=== PATIENT | female | born 1940 | race Caucasian/White ===

== ENCOUNTER 2025-03-20 06:34 | Emergency (ER) | payer MEDICARE, OTHER ==
[~2025-03-20] VITALS: Ht 165.1 cm; Wt 72.0 kg
[~2025-03-20 06:34] MED LIST: ALBUAER3 IN; DICL75TA3 PO; FLUT110A INH; HYDR12.59 PO; LANS30CA57 PO; LISI20TA56 PO; NIFE1TAB30 PO; PROM2SUP PR; SERDISK IN; SIMV20TA20 PO
--- NOTE | 2025-03-20 07:03 | ED.PDOC ---
GI ASSESSMENT HPI Comments A 84 YEAR OLD FEMALE PRESENTS TO THE ED WITH COMPLAINT OF DIARRHEA. PT STATES SHE HAS BEEN HAVING DIARRHEA WITH ASSOCITED NAUSEA FOR THE PAST 4X DAYS. PT STATES SHE ALSO HAS BEEN HAVING INTERMITTENT FEVERS AND ASSOCIATED CRAMPING ABDOMINAL PAIN. PT THINKS IT IS POSSIBLY RELATED TO SOME BAD FOOD SHE ATE 4X DAYS PRIOR. PATIENT DENIES CHILLS, SHORTNESS OF BREATH, CHEST PAIN, VOMITING, HEADACHE, OR OTHER COMPLAINTS. NO OTHER SYMPTOMS OR MODIFYING FACTORS AT THIS TIME. PATIENT IS ALERT, ORIENTED X 4, AND HAS STEADY GAIT. Chief Complaint: Diarrhea Time Seen by MD: 06:59 Primary Care Provider: JUSTINE Reviewed Notes: Medications, Allergies Allergies: Coded Allergies: NO KNOWN ALLERGIES (Unverified , 05/24/13) Home Meds Active Scripts Loperamide HCl (Imodium A-D) 2 Mg Cap, 2 MG PO TID, #30 CAP Prov:VALORIE DUMONT 03/20/25 Ciprofloxacin Hcl (Cipro) 500 Mg Tab, 1 TAB PO BID, #14 TAB Prov:VALORIE DUMONT 03/20/25 Reported Medications Promethazine HCl (Phenergan) 12.5 Mg Sup, LA 09/07/16 Albuterol Sulfate (VENTOLIN MDI) 90 Mcg Ih, 90 MCG IN 09/07/16 Salmeterol Xinafoate (Serevent Diskus) 50 Mcg Aer, 50 MCG IN QID, AER 09/07/16 Fluticasone Propionate (FLOVENT HFA 110Mcg INH) 110 Mcg Ih, 2 PUFF INH BID, #1 INHALER 2 Refills 09/07/16 Simvastatin (Simvastatin) 20 Mg Tab, 1 TAB PO QPM, #30 TAB 5 Refills 09/07/16 Nifedipine (Nifedipine Er) 60 Mg Tab, 1 TAB PO DAILY, #30 TAB 5 Refills 09/07/16 Lisinopril (Lisinopril) 20 Mg Tab, 1 TAB PO BID, #30 TAB 5 Refills 09/07/16 Hydrochlorothiazide (Hydrochlorothiazide) 12.5 Mg Cap, 10 MG PO PRN, #30 CAP 5 Refills 09/07/16 Diclofenac Sodium (Diclofenac Sodium Dr) 75 Mg Tab, 0.5 TAB PO DAILY, #60 TAB 1 Refill 09/07/16 Lansoprazole (Lansoprazole) 30 Mg Cap, 1 CAP PO DAILY, #30 CAP 5 Refills 09/07/16 Information Source: Patient Mode of Arrival: Ambulatory Brought in by: SELF Duration: Since onset, Days Prehospital treatment: None Quality: Aching, Cramping, Colicky Stool: Loose, Watery Severity: Mild, Moderate Recent: None Recent Hx of: None Pain Location: Other (MIDDLE ABD ) Modifying Factors: Nothing Associated sign and symptoms: Nausea, Diarrhea, Abdominal Pain Past Medical History PAST MEDICAL HISTORY: Asthma, High Lipids, HTN, TIA Surgical History: Appendectomy RECEIVING CLERK History: No Pertinent RECEIVING CLERK History Family History Family History: Unobtainable Social History Smoker: Secondhand Alcohol: Occasionally Drugs: Denies Drug Use Lives In: Home Constitutional: denies: chills, diaphoresis, fatigue, fever, malaise, sweats, weakness, others EENTM: denies: blurred vision, double vision, ear bleeding, ear discharge, ear drainage, ear pain, ear ringing, eye pain, eye redness, hearing loss, mouth pain, mouth swelling, nasal discharge, nose bleeding, nose congestion, nose pain, photophobia, tearing, throat pain, throat swelling, voice changes, others Respiratory: denies: cough, hemoptysis, orthopnea, SOB at rest, shortness of breath, SOB with excertion, stridor, wheezing, others Cardiovascular: denies: chest pain, dizzy spells, diaphoresis, Dyspnea on exertion, edema, irregular heart beat, left arm pain, lightheadedness, palpitations, PND, syncope, others Gastrointestinal: reports: abdominal pain, diarrhea, nausea; denies: abdomen distended, blood streaked bowels, constipated, dysphagia, difficulty swallowing, hematemesis, melena, poor appetite, poor fluid intake, rectal bleeding, rectal pain, vomiting, others Genitourinary: denies: abnormal vagina bleeding, burning, dyspareunia, dysuria, flank pain, frequency, hematuria, incontinence, pain, , vagina discharge, urgency, others Neurological: denies: dizziness, fainting, headache, left sided numbness, left sided weakness, numbness, paresthesia, pre-existing deficit, right sided numbness, right sided weakness, seizure, speech problems, tingling, tremors, weakness, others Musculoskeletal: denies: back pain, gout, joint pain, joint swelling, muscle pain, muscle stiffness, neck pain, others Integumetry: denies: bruises, change in color, change in hair/nails, dryness, laceration, lesions, lumps, rash, wounds, others Allergic/Immunocompromised: denies: Difficulty Healing, Frequent Infections, Hives, Itching, others Hematologic/Lymphatic: denies: anemia, blood clots, easy bleeding, easy bruising, swollen glands, others Endocrine: denies: excessive hunger, excessive sweating, excessive thirst, excessive urination, flushing, intolerance to cold, intolerance to heat, unexplained weight gain, unexplained weight loss, others Psychiatric: denies: anxiety, bipolar disorder, depression, hopeless, panic disorder, schizophrenia, sleepless, suicidal, others All Other Systems: Reviewed and Negative Physical Exam General Appearance: No Apparent Distress, Normal HEENT: Normal ENT Inspection, PERRL/EOMI, Pharynx Normal, TMs Normal Neck: Full Range of Motion, Non-Tender, Normal, Normal Inspection Respiratory: Chest Non-Tender, Lungs Clear, No Accessory Muscle Use, No Respiratory Distress, Normal Breath Sounds Cardiovascular: No Edema, No JVD, No Murmur, No Gallop, Normal Peripheral Pulses, Regular Rate/Rhythm Breast Exam: Deferred Gastrointestinal: No Organomegaly, No Pulsatile Mass, Normal Bowel Sounds, Soft, Tenderness (MIDDLE ABD, NO GUARDING AND REBOUND TENDERNESS. ) Genitalia: Deferred Pelvic: Deferred Rectal: Deferred Extremities: No calf tenderness, Normal capillary refill, Normal inspection, Normal range of motion, Non-tender, No pedal edema Musculoskeletal : Apperance: Normal Neurologic: Alert, human resources operations coordinator II-XII nml as Tested, No Motor Deficits, Normal Affect, Normal Mood, No Sensory Deficits Cerebellar Function: Normal Reflexes: Normal Skin: Dry, Normal Color, Warm Peripheral Pulses: 2+ carotid (R), 2+ carotid (L) Lymphatic: No Adenopathy Was a procedure done? Was a procedure done?: No GI differential Dx Differential Diagnosis: Cholecystitis, Constipation, Gastritis/PUD, Gastroenteritis, Inflammatory BD, Pancreatitis, UTI, Dehydration, Electrolyte Imbalance, Food Poisoning, Bacterial, Viral, Stress Ulcer X-Ray, Labs, Meds, VS Vital Signs Date Time Temp Pulse Resp B/P (MAP) Pulse Ox O2 Delivery O2 Flow Rate FiO2 03/20/25 09:12 97.9 85 17 177/60 (99) 95 97.9 03/20/25 09:12 85 18 95 Room Air 03/20/25 06:38 98.1 90 20 160/72 97 98.1 Lab Test 03/20/25 07:02 Range/Units White Blood Count 8.6 4.4-10.8 10^3/uL Red Blood Count 4.64 4.0-5.20 10^6/uL Hemoglobin 14.0 12.2-16.2 g/dL Hematocrit 41.5 36.0-46.0 % Mean Corpuscular Volume 89.3 80.0-100.0 fL Mean Corpuscular Hemoglobin 30.1 28.0-32.0 pg Mean Corpuscular Hemoglobin Concent 33.7 32.0-36.0 g/dL Red Cell Distribution Width 14.7 H 11.8-14.3 % Platelet Count 280 140-450 10^3/uL Mean Platelet Volume 9.6 6.9-10.8 fL Neutrophils (%) (Auto) 78.0 37.0-80.0 % Lymphocytes (%) (Auto) 14.2 10.0-50.0 % Monocytes (%) (Auto) 5.2 0.0-12.0 % Eosinophils (%) (Auto) 1.3 0.0-7.0 % Basophils (%) (Auto) 1.3 0.0-2.0 % Neutrophils # (Auto) 6.7 1.6-8.6 10 ^3/uL Lymphocytes # (Auto) 1.2 0.4-5.4 10 ^3/uL Monocytes # (Auto) 0.4 0-1.3 10 ^3/uL Eosinophils # (Auto) 0.1 0-0.8 10 ^3/uL Basophils # (Auto) 0.1 0-0.2 10 ^3/uL Nucleated Red Blood Cells 0.0 % Sodium Level 146 H 136-145 mmol/L Potassium Level 3.7 3.5-5.1 mmol/L Chloride Level 105 98-107 mmol/L Carbon Dioxide Level 25 20-31 mmol/L Anion Gap 16 H 5-15 Blood Urea Nitrogen 11 9-23 mg/dL Creatinine 1.10 H 0.550-1.02 mg/dL Glomerular Filtration Rate Calc 50 >90 mL/min BUN/Creatinine Ratio 10.0 10.0-20.0 Serum Glucose 102 74-106 mg/dL Calcium Level 10.5 H 8.7-10.4 mg/dL Total Bilirubin 0.2 0.2-1.0 mg/dL Aspartate Amino Transferase (AST) 37 13-40 U/L Alanine Aminotransferase (ALT) 21 7-40 U/L Alkaline Phosphatase 93 46-116 U/L Total Protein 7.8 5.7-8.2 g/dL Albumin 4.7 3.2-4.8 g/dL Lipase 34 12-53 U/L Current Medications Medications (Trade) Dose Ordered Sig/Es Route Start Time Stop Time Status Last Admin Sodium Chloride 1,000 ml @ 1,000 mls/hr Q1H ONCE IV 03/20/25 07:30 03/20/25 08:29 DC 03/20/25 08:39 Famotidine (Pepcid Injection) 20 mg ONCE ONCE IV 03/20/25 07:30 03/20/25 07:31 DC 03/20/25 09:56 Ondansetron HCl (Zofran) 4 mg ONCE ONCE IV 03/20/25 07:45 03/20/25 07:46 DC 03/20/25 09:53 Ceftriaxone Sodium 50 ml @ 100 mls/hr ONCE ONCE IV 03/20/25 08:15 03/20/25 08:44 DC 03/20/25 09:53 [place] [id number] Ph: [phone] DIAGNOSTIC IMAGING Diagnostic Imaging Report : [id number] Signed PATIENT: JEFFERSON MCKNIGHT ACCT: [id number] UNIT: [id number] : 1940 LOC: ER ROOM / BED: / AGE / SEX: 84 / F ADM STATUS: REG ER SERVICE 0 ORDERING PHYSICIAN: VALORIE DUMONT PROCEDURE(s): ABPL - CT AB PEL WO CON-NO ORAL OR IV REASON: GENERAL ABD PAIN WITH NAUSEA AND DIARRHEA ORDER NUMBER(s): [id number], ACCESSION NUMBER(s): [id number] Exam: CT CT AB PEL WO CON-NO ORAL OR IV History: GENERAL ABD PAIN WITH NAUSEA AND DIARRHEA Comparison Study: None. Technique: Multidetector spiral CT of the abdomen and pelvis was performed from lung bases to pubic symphysis. Imaging was performed without intravenous contrast. Coronal and sagittal multiplanar reformats were obtained from the axial data set by the technologist. Radiation Dose : 1. Abdomen/Pelvis: CTDIvol 17.41 mGy, DLP 894.57 mGy*cm. Findings: Evaluation of vasculature and solid organs is limited due to lack of intravenous contrast use. Lung Bases: There is bilateral lower lobe atelectasis. Visualized portions of the heart and pericardium are unremarkable. Liver: The liver is normal in size. No focal lesions. Gallbladder and Biliary Tree: The gallbladder is unremarkable. No intrahepatic or extrahepatic biliary ductal dilatation. Spleen: Unremarkable Pancreas: The pancreas is grossly unremarkable. Adrenal Glands: Unremarkable Kidneys: Kidneys are unremarkable without calculi or hydronephrosis. GI tract: Hiatal hernia with a majority of the stomach intrathoracic in location. No evidence of small-bowel dilatation. There is contrast o pacification of the ascending colon an underdistended descending and sigmoid colon. Underdistention versus mucosal thickening is noted in the descending and sigmoid colon. No acute appendicitis. Peritoneum/mesentery/retroperitoneum. No evidence of free intraperitoneal air. No ascites. No evidence of suspicious lymphadenopathy. Abdominal Wall: Unremarkable. Vasculature: The visualized abdominal aorta is normal in size and caliber. Evaluation of abdominal and pelvic vessels is limited due to lack of intravenous contrast. Urinary Bladder: Grossly unremarkable for degree of distention. Pelvic Organs: The uterus is unremarkable. Musculoskeletal: No aggressive focal bony lesions, acute fractures or dislocation. S shaped thoracolumbar scoliosis. IMPRESSION: 1. No evidence of small bowel obstruction. 2. Underdistention versus mucosal thickening in the descending and sigmoid col on. Correlate for colitis. 3. Hiatal hernia with a majority of the stomach intrathoracic in location. ATED BY: MYA MERIDA MD DICTATED DATE/TIME: 03/20/25752 SIGNED BY: MYA MERIDA MD SIGNED DATE/TIME: 03/20/25752 CC: X-Ray, Labs, Meds, VS Comment COURSE: EXTERNAL MEDICAL RECORDS REVIEWED: [NONE] INDEPENDENT HISTORIANS: [NONE] SOCIAL DETERMINANTS OF HEALTH: [NONE] LABS ORDERED: CBC, CMP, UA, LIPASE, C DIFF REVIEWED AND INTERPRETED RESULTS: NONE IMAGING ORDERED: NONE TREATMENTS ORDERED: 0.9 NS 1L, ZOFRAN 4MG IVP, PEPCID 2MG IVP AND ROCEPHIN 1GM IVP PROCEDURES PERFORMED: NONE CRITICAL CARE TIME: NONE I HAVE DISCUSSED THE PATIENT WITH THE ATTENDING PHYSICIAN DR. GIVENS AND HE AGREES WITH THE PATIENT'S PLAN OF CARE AND DISPOSITION. PT HAD CT SCAN WHICH SHOWED COLITIS. PT WAS OFFERED ADMISSION BUT SHE DECLINED AND SIGNED AMA. BE GIVEN OUTPATIENT ANTIBIOTICS AND ANTIDIARRHEA MEDICATIONS. Time of 1ST Reevaluation: 10:21 Reevaluation 1ST: Improved Patient Education/Counseling: Diagnosis, Treatment Family Education/Counseling: Diagnosis, Treatment, No Family Present SEPSIS Sepsis Screen Date sepsis recognized/suspect: Mar 20, 2025 Time Sepsis recognized/suspect: 637 Recent Procedure: No On Antibiotic Therapy: No Respiratory Rate >20: No Heart Rate >90: No Temp<36 C (96.8 F) or >38.3 C: No SBP <90 or MAP <65 mmHG: No New Acute Mental Status Change: No Is the patient on CPAP, BIPAP,: No Physician Orders Urinalysis (03/20/25 06:52) Clostridium Difficile Toxin (03/20/25 06:52) Ct Ab Pel Wo Con-No Oral Or Iv (03/20/25 07:11) Heplock Iv (03/20/25 ) Vital Signs Date Time Temp Pulse Resp B/P (MAP) Pulse Ox O2 Delivery O2 Flow Rate FiO2 03/20/25 09:12 97.9 85 17 177/60 (99) 95 97.9 03/20/25 09:12 85 18 95 Room Air 03/20/25 06:38 98.1 90 20 160/72 97 98.1 Laboratory Tests Test 03/20/25 07:02 White Blood Count 8.6 10^3/uL (4.4-10.8) Medications Medications Dose Ordered Sig/Es Route Start Time Stop Time Status Last Admin Dose Admin Ceftriaxone Sodium 50 ml @ 100 mls/hr ONCE ONCE IV 03/20/25 08:15 03/20/25 08:44 DC 03/20/25 09:53 Famotidine 20 mg ONCE ONCE IV 03/20/25 07:30 03/20/25 07:31 DC 03/20/25 09:56 Ondansetron HCl 4 mg ONCE ONCE IV 03/20/25 07:45 03/20/25 07:46 DC 03/20/25 09:53 Sodium Chloride 1,000 ml @ 1,000 mls/hr Q1H ONCE IV 03/20/25 07:30 03/20/25 08:29 DC 03/20/25 08:39 Departure 1 Departure Time of Disposition: 10:21 Impression: Primary Impression: Colitis Additional Impression: Left against medical advice Disposition: LEFT AGAINST MEDICAL ADVICE Condition: Fair e-Prescriptions Loperamide HCl (Imodium A-D) 2 Mg Cap 2 MG PO TID, #30 CAP Prov: VALORIE DUMONT 03/20/25 Ciprofloxacin Hcl (Cipro) 500 Mg Tab 1 TAB PO BID, #14 TAB Prov: VALORIE DUMONT 03/20/25 Critical Care Note Critical Care Time?: No Stability Stability form required: No Heart Score Heart Score: Heart Score Response (Comments) Value History N/A 0 EKG N/A 0 Age N/A 0 Risk Factors N/A 0 Troponin N/A 0 Total 0 I personally scribed for VALORIE DUMONT ([email or web address]) on 03/20/25 at 07:03. Electronically submitted by Stephania Guardado ([employer]). I personally scribed for VALORIE DUMONT ([email or web address]) on 03/20/25 at 07:57. Electronically submitted by Stephania Guardado ([employer]). I personally scribed for VALORIE DUMONT ([email or web address]) on 03/20/25 at 10:00. Electronically submitted by Stephania Guardado ([email or web address] VALORIE DUMONT Mar 20, 2025 07:03
[2025-03-20 07:15] LABS: Hematocrit 41.5 % (36.0-46.0); Hemoglobin 14.0 g/dL (12.2-16.2); Mean Corpuscular Hemoglobin 30.1 pg (28.0-32.0); Mean Corpuscular Volume 89.3 fL (80.0-100.0); Nucleated Red Blood Cells % 0.0 %
[2025-03-20 07:31] LABS: Alanine Aminotransferase 21 U/L (7-40); Alkaline Phosphatase 93 U/L (46-116); Anion Gap 16 (5-15); BUN/Creatinine Ratio 10.0 (10.0-20.0); Blood Urea Nitrogen 11 mg/dL (9-23); Carbon Dioxide 25 mmol/L (20-31); Chloride 105 mmol/L (98-107); Glucose 102 mg/dL (74-106); Lipase 34 U/L (12-53); Potassium 3.7 mmol/L (3.5-5.1); Total Protein 7.8 g/dL (5.7-8.2)
[2025-03-20 07:32] LABS: Albumin 4.7 g/dL (3.2-4.8); Calcium 10.5 mg/dL (8.7-10.4); Sodium 146 mmol/L (136-145)
[2025-03-20 07:33] LABS: Bilirubin, Total 0.2 mg/dL (0.2-1.0)
--- NOTE | 2025-03-20 07:55 | DVH ---
Exam: CT CT AB PEL WO CON-NO ORAL OR IV History: GENERAL ABD PAIN WITH NAUSEA AND DIARRHEA Comparison Study: None. Technique: Multidetector spiral CT of the abdomen and pelvis was performed from lung bases to pubic symphysis. Imaging was performed without intravenous contrast. Coronal and sagittal multiplanar reformats were obtained from the axial data set by the technologist. Radiation Dose : 1. Abdomen/Pelvis: CTDIvol 17.41 mGy, DLP 894.57 mGy*cm. Findings: Evaluation of vasculature and solid organs is limited due to lack of intravenous contrast use. Lung Bases: There is bilateral lower lobe atelectasis. Visualized portions of the heart and pericardium are unremarkable. Liver: The liver is normal in size. No focal lesions. Gallbladder and Biliary Tree: The gallbladder is unremarkable. No intrahepatic or extrahepatic biliary ductal dilatation. Spleen: Unremarkable Pancreas: The pancreas is grossly unremarkable. Adrenal Glands: Unremarkable Kidneys: Kidneys are unremarkable without calculi or hydronephrosis. GI tract: Hiatal hernia with a majority of the stomach intrathoracic in location. No evidence of small-bowel dilatation. There is contrast opacification of the ascending colon an underdistended descending and sigmoid colon. Underdistention versus mucosal thickening is noted in the descending and sigmoid colon. No acute appendicitis. Peritoneum/mesentery/retroperitoneum. No evidence of free intraperitoneal air. No ascites. No evidence of suspicious lymphadenopathy. Abdominal Wall: Unremarkable. Vasculature: The visualized abdominal aorta is normal in size and caliber. Evaluation of abdominal and pelvic vessels is limited due to lack of intravenous contrast. Urinary Bladder: Grossly unremarkable for degree of distention. Pelvic Organs: The uterus is unremarkable. Musculoskeletal: No aggressive focal bony lesions, acute fractures or dislocation. S shaped thoracolumbar scoliosis. IMPRESSION: 1. No evidence of small bowel obstruction. 2. Underdistention versus mucosal thickening in the descending and sigmoid colon. Correlate for colitis. 3. Hiatal hernia with a majority of the stomach intrathoracic in location.
[2025-03-20] MEDS: SODIUM CHLORIDE 0.9% 1,000 ML IV ONE (08:39)
[2025-03-20 09:12] VITALS: BP 177/60; PULSE 85; RESP 18; TEMP 97.9; O2SAT 95
[2025-03-20] MEDS: ONDANSETRON HCL 4 MG/2 ML VIAL IV ONE (09:53)
[2025-03-20] MEDS: FAMOTIDINE (10MG/ML) 2ML VL IV ONE (09:56)
[2025-03-20] MEDS ORDERED: LOPE7.5C PO (10:16)
[2025-03-20] MEDS ORDERED: CIPR-173 PO (10:16)
== END 2025-03-20 10:23 | disposition left against medical advice (07) ==
LOC: ER 06:34
DX: K52.9 Noninfective gastroenteritis and colitis, unspecified (principal); F17.200 Nicotine dependence, unspecified, uncomplicated; I10 Essential (primary) hypertension; J45.909 Unspecified asthma, uncomplicated; Z86.73 Personal history of transient ischemic attack (TIA), and cerebral infarction without residual deficits; Z90.49 Acquired absence of other specified parts of digestive tract; Z79.51 Long term (current) use of inhaled steroids; Z79.899 Other long term (current) drug therapy
CPT/HCPCS: 36415; 74176; 80053; 83690; 85025; 96361; 96365; 96375; 99285; J0696; J2405; J3490; J7030

== ENCOUNTER 2025-03-22 06:04 | Inpatient (IN) | payer MEDICARE, OTHER ==
[~2025-03-22] VITALS: Ht 162.6 cm; Wt 66.4 kg
[~2025-03-22 06:04] MED LIST changes: +CIPR-173 PO; +LOPE7.5C PO
--- NOTE | 2025-03-22 06:34 | ED.PDOC ---
SOB-HPI HPI Comments 84 y.o female with PMHx of HTN, HLD, CVA, and asthma, presents with a chief complaint of SOB associated with a fever. Patient reports having an asthma flare up at the end of February 2025, states she then came to the hospital 2 days ago in which she developed fever and diarrhea. She was treated with IV fluids and medication which resolved the diarrhea, however, continues to experience SOB worse on exertion with an intermittent fever. Patient is afebrile upon ED arrival. BP was 187/66 during triage but does mentions taking 50mg Nifedipine prior to ED arrival. She denies any vomiting, nausea, chest pain, or leg swelling. She mentions occasional alcohol use but denies tobacco or substance use. Chief Complaint: Dizziness Time Seen by MD: 06:26 Primary Care Provider: JUSTINE Fernandez notes: Nurses Notes, Medications, Allergies Information Source: Patient Mode of Arrival: Ambulatory Severity: Moderate Timing: Days Duration: Since onset PE Risk Factors: None History of: Asthma Modifying Factors: Nothing; Exertion, Laying flat Associated Signs and Symptoms: Fever Past Medical History PAST MEDICAL HISTORY: Asthma, CVA, High Lipids, HTN, TIA Surgical History: Appendectomy, Tonsillectomy COMMUNITY SERVICES MANAGER History: Ectopic Family History Family History: Family hx of Cancer Social History Smoker: Secondhand Alcohol: Occasionally Drugs: Denies Drug Use Lives In: Home Constitutional: reports: fever; denies: chills, diaphoresis, fatigue, malaise, sweats, weakness, others EENTM: denies: blurred vision, double vision, ear bleeding, ear discharge, ear drainage, ear pain, ear ringing, eye pain, eye redness, hearing loss, mouth pain, mouth swelling, nasal discharge, nose bleeding, nose congestion, nose pain, photophobia, tearing, throat pain, throat swelling, voice changes, others Respiratory: reports: SOB at rest, shortness of breath, SOB with excertion; denies: cough, hemoptysis, orthopnea, stridor, wheezing, others Cardiovascular: reports: Dyspnea on exertion; denies: chest pain, dizzy spells, diaphoresis, edema, irregular heart beat, left arm pain, lightheadedness, palpitations, PND, syncope, others Gastrointestinal: denies: abdomen distended, abdominal pain, blood streaked bowels, constipated, diarrhea, dysphagia, difficulty swallowing, hematemesis, melena, nausea, poor appetite, poor fluid intake, rectal bleeding, rectal pain, vomiting, others Genitourinary: denies: abnormal vagina bleeding, burning, dyspareunia, dysuria, flank pain, frequency, hematuria, incontinence, pain, , vagina discharge, urgency, others Neurological: denies: dizziness, fainting, headache, left sided numbness, left sided weakness, numbness, paresthesia, pre-existing deficit, right sided numbness, right sided weakness, seizure, speech problems, tingling, tremors, weakness, others Musculoskeletal: denies: back pain, gout, joint pain, joint swelling, muscle pain, muscle stiffness, neck pain, others Integumetry: denies: bruises, change in color, change in hair/nails, dryness, laceration, lesions, lumps, rash, wounds, others Allergic/Immunocompromised: denies: Difficulty Healing, Frequent Infections, Hives, Itching, others Hematologic/Lymphatic: denies: anemia, blood clots, easy bleeding, easy bruising, swollen glands, others Endocrine: denies: excessive hunger, excessive sweating, excessive thirst, excessive urination, flushing, intolerance to cold, intolerance to heat, unexplained weight gain, unexplained weight loss, others Psychiatric: denies: anxiety, bipolar disorder, depression, hopeless, panic disorder, schizophrenia, sleepless, suicidal, others All Other Systems: Reviewed and Negative Physical Exam General Appearance: Moderate Distress HEENT: Normal ENT Inspection, Pharynx Normal, TMs Normal Neck: Full Range of Motion, Non-Tender, Normal, Normal Inspection Respiratory: Chest Non-Tender, Lungs Clear, No Accessory Muscle Use, No Respiratory Distress, Normal Breath Sounds Cardiovascular: No Edema, No JVD, No Murmur, No Gallop, Normal Peripheral Pulses, Regular Rate/Rhythm Breast Exam: Deferred Gastrointestinal: No Organomegaly, Non Tender, No Pulsatile Mass, Normal Bowel Sounds, Soft Genitalia: Deferred Pelvic: Deferred Rectal: Deferred Extremities: No calf tenderness, Normal capillary refill, Normal inspection, Normal range of motion, Non-tender, No pedal edema Musculoskeletal : Apperance: Normal Neurologic: Alert, aquatic facility manager II-XII nml as Tested, No Motor Deficits, Normal Affect, Normal Mood, No Sensory Deficits Cerebellar Function: Normal Reflexes: Normal Skin: Dry, Normal Color, Warm Lymphatic: No Adenopathy EKG EKG : Pulse Rate (adult): 88 [place]: Normal Cardiac Rhythm: NSR Block: None Hypertrophy: None ST: Normal Was a procedure done? Was a procedure done?: No Differential Dx Differential Diagnosis: Asthma, Bronchitis, Pneumonia, Respiratory Distress, URI X-Ray, Labs, Meds, VS Vital Signs Date Time Temp Pulse Resp B/P (MAP) Pulse Ox O2 Delivery O2 Flow Rate FiO2 03/22/25 09:27 97.7 92 18 185/84 (117) 95 97.7 03/22/25 06:51 88 03/22/25 06:48 88 03/22/25 06:12 98.0 97 16 187/66 96 98.0 Lab Test 03/22/25 09:40 03/22/25 08:01 03/22/25 07:53 03/22/25 07:48 Range/Units Troponin I High Sensitivity 11 10 </=34 ng/L SARS-CoV-2 Antigen (Rapid) Negative NEGATIVE Urine Color Colorless Yellow Urine Clarity Clear Clear Urine pH 6.5 5.0-9.0 Urine Specific [place] 1.007 1.001-1.035 Urine Protein Trace H Negative Urine Ketones Negative Negative Urine Blood 2+ H Negative /uL Urine Nitrite Negative Negative Urine Bilirubin Negative Negative Urine Urobilinogen Normal Negative mg/dL Urine Leukocyte Esterase 2+ Negative /uL Urine RBC 11 0 - 4 /hpf Urine Microscopic WBC 3 0-5 /HPF Urine Squamous Epithelial Cells Few <5 /hpf Urine Bacteria Few H None Seen /hpf Urine Glucose Normal Normal mg/dL Test 03/22/25 06:37 Range/Units White Blood Count 8.1 4.4-10.8 10^3/uL Red Blood Count 4.64 4.0-5.20 10^6/uL Hemoglobin 13.7 12.2-16.2 g/dL Hematocrit 44.1 36.0-46.0 % Mean Corpuscular Volume 95.0 # 80.0-100.0 fL Mean Corpuscular Hemoglobin 29.5 28.0-32.0 pg Mean Corpuscular Hemoglobin Concent 31.0 L 32.0-36.0 g/dL Red Cell Distribution Width 15.6 H 11.8-14.3 % Platelet Count 257 140-450 10^3/uL Mean Platelet Volume 9.8 6.9-10.8 fL Neutrophils (%) (Auto) 82.3 H 37.0-80.0 % Lymphocytes (%) (Auto) 10.0 10.0-50.0 % Monocytes (%) (Auto) 5.2 0.0-12.0 % Eosinophils (%) (Auto) 1.2 0.0-7.0 % Basophils (%) (Auto) 1.3 0.0-2.0 % Neutrophils # (Auto) 6.6 1.6-8.6 10 ^3/uL Lymphocytes # (Auto) 0.8 0.4-5.4 10 ^3/uL Monocytes # (Auto) 0.4 0-1.3 10 ^3/uL Eosinophils # (Auto) 0.1 0-0.8 10 ^3/uL Basophils # (Auto) 0.1 0-0.2 10 ^3/uL Nucleated Red Blood Cells 0.1 % D-Dimer, Quantitative 1.35 H 0.0-0.49 mg/L FEU Sodium Level 142 136-145 mmol/L Potassium Level 3.7 3.5-5.1 mmol/L Chloride Level 105 98-107 mmol/L Carbon Dioxide Level 24 20-31 mmol/L Anion Gap 13 5-15 Blood Urea Nitrogen 9 9-23 mg/dL Creatinine 1.15 H 0.550-1.02 mg/dL Glomerular Filtration Rate Calc 48 >90 mL/min BUN/Creatinine Ratio 7.8 L 10.0-20.0 Serum Glucose 106 74-106 mg/dL Calcium Level 10.8 H 8.7-10.4 mg/dL Troponin I High Sensitivity 9 </=34 ng/L B-Type Natriuretic Peptide 67.09 0-100 pg/mL Current Medications Medications (Trade) Dose Ordered Sig/Es Route Start Time Stop Time Status Last Admin Ceftriaxone Sodium 50 ml @ 100 mls/hr ONCE ONCE IV 03/22/25 09:45 03/22/25 10:14 DC 03/22/25 10:13 The patient was started on Rocephin 1 g IV piggyback The patient's urine test is positive for UTI The patient's CBC is within normal limits The D-dimer is 1.35 The chemistry panel shows an elevated creatinine at 1.15 The BNP is within normal limits The troponin is negative We did a CAT scan of the chest to rule out PE secondary to the elevated D-dimer The CAT scan of the chest shows: IMPRESSION: Examination is limited secondary to respiratory motion artifact. No large central or large segmental pulmonary embolism. Large hiatal hernia. Dependent subsegmental atelectasis. Images Reviewed?: Images reviewed and evaluated by me Time of 1ST Reevaluation: 06:30 Reevaluation 1ST: Unchanged Patient Education/Counseling: Diagnosis, Treatment, Prognosis Family Education/Counseling: No Family Present SEPSIS Sepsis Screen Date sepsis recognized/suspect: Mar 22, 2025 Time Sepsis recognized/suspect: 617 Recent Procedure: No On Antibiotic Therapy: No Respiratory Rate >20: No Heart Rate >90: Yes Temp<36 C (96.8 F) or >38.3 C: No SBP <90 or MAP <65 mmHG: No New Acute Mental Status Change: No Is the patient on CPAP, BIPAP,: No Physician Orders Heplock Iv (03/22/25 06:30) Pulse Oximetry (03/22/25 06:30) House Wrecker (03/22/25 06:30) Blood Pressure (03/22/25 06:30) Chest Two Views Routine (03/22/25 06:30) Electrocardigram (03/22/25 06:30) Electrocardigram (03/22/25 07:30) Electrocardigram (03/22/25 09:30) Ct Angio Chest Contrast (03/22/25 09:33) Vital Signs Date Time Temp Pulse Resp B/P (MAP) Pulse Ox O2 Delivery O2 Flow Rate FiO2 03/22/25 09:27 97.7 92 18 185/84 (117) 95 97.7 03/22/25 06:51 88 03/22/25 06:48 88 03/22/25 06:12 98.0 97 16 187/66 96 98.0 Laboratory Tests Test 03/22/25 06:37 White Blood Count 8.1 10^3/uL (4.4-10.8) Medications Medications Dose Ordered Sig/Es Route Start Time Stop Time Status Last Admin Dose Admin Ceftriaxone Sodium 50 ml @ 100 mls/hr ONCE ONCE IV 03/22/25 09:45 03/22/25 10:14 DC 03/22/25 10:13 Departure 1 Departure Time of Disposition: 10:54 Impression: Primary Impression: Elevated d-dimer Additional Impression: Acute respiratory distress Disposition: 09 ADMITTED INPATIENT Admit to: Tele Condition: Fair Critical Care Note Critical Care Time?: No Stability Stability form required: Yes Unstable for transfer: Telemetry monitoring (Telemetry monitoring required), ED Physician Assesment (Clinical assesment) Heart Score Heart Score: Heart Score Response (Comments) Value History N/A 0 EKG N/A 0 Age N/A 0 Risk Factors N/A 0 Troponin N/A 0 Total 0 I personally scribed for STACEY BRANNON MD ([email or web address]) on 03/22/25 at 06:34. Electronically submitted by Sheila Macias ([email or web address]). I personally scribed for STACEY BRANNON MD ([email or web address]) on 03/22/25 at 06:51. Electronically submitted by Sheila Macias ([email or web address]). STACEY BRANNON MD Mar 22, 2025 06:34
[2025-03-22 07:40] LABS: Chloride 105 mmol/L (98-107); Hematocrit 44.1 % (36.0-46.0); Hemoglobin 13.7 g/dL (12.2-16.2); Mean Corpuscular Hemoglobin 29.5 pg (28.0-32.0); Mean Corpuscular Volume 95.0 fL (80.0-100.0); Nucleated Red Blood Cells % 0.1 %; Potassium 3.7 mmol/L (3.5-5.1); Sodium 142 mmol/L (136-145)
[2025-03-22 07:41] LABS: Anion Gap 13 (5-15); Carbon Dioxide 24 mmol/L (20-31)
[2025-03-22 07:46] LABS: BUN/Creatinine Ratio 7.8 (10.0-20.0); Blood Urea Nitrogen 9 mg/dL (9-23)
[2025-03-22 07:47] LABS: Calcium 10.8 mg/dL (8.7-10.4); Glucose 106 mg/dL (74-106)
--- NOTE | 2025-03-22 08:00 | DVH ---
XY CHEST TWO VIEWS ROUTINE CLINICAL HISTORY: SOB COMPARISON: None TECHNIQUE: Frontal and lateral view of the chest was obtained FINDINGS: Lines and Tubes: None Lungs: No focal consolidation. Pleura: No effusion. No pneumothorax. Cardiomediastinal contours: Unremarkable Bones: No acute osseous abnormality. IMPRESSION: No acute cardiopulmonary disease.
[2025-03-22 08:19] LABS: Urine Protein, UAD TRACE (Negative)
[2025-03-22 08:30] LABS: COVID19 ANTIGEN SOFIA FIA NEGATIVE (NEGATIVE)
[2025-03-22] MEDS: IOHEXOL 350 MG/ML 100ML IJ ONE (09:40)
--- NOTE | 2025-03-22 10:27 | DVH ---
CTA Chest with intravenous contrast INDICATION: sob COMPARISON: None TECHNIQUE: Multidetector spiral CTA of the chest was performed of the chest with intravenous contrast. PULMONARY ANGIOGRAPHY PROTOCOL was utilized using a bolus- tracking technique centered on the main pulmonary artery. Axial, coronal and sagittal multiplanar and MIP reformats were performed. Radiation Dose : 1. Chest: CTDI volume is 22.23 mGy. Dose-length product is 750.77 mGy*cm The dose indicators for CT are the volume Computed Tomography (CT) Dose Index (CTDIvol) and the Dose Length Product (DLP), and are measured in units of mGy and mGy-cm, respectively. These indicators are not patient dose, but values generated from the CT scanner acquisition factors. The report includes radiation exposure data for exposures received during this examination. Findings: Pulmonary artery: No large central or large segmental pulmonary embolism. Lower neck: Normal thyroid. Lungs: Dependent subsegmental atelectasis. Heart/Vascular Structures: Cardiomegaly. Vascular calcifications of the aorta. Lymph Nodes: No adenopathy Pleura: No pleural effusion or significant pneumothorax. Musculoskeletal: No acute osseous abnormality. Soft tissues: Normal. Upper abdomen: Large hiatal hernia. IMPRESSION: Examination is limited secondary to respiratory motion artifact. No large central or large segmental pulmonary embolism. Large hiatal hernia. Dependent subsegmental atelectasis.
--- NOTE | 2025-03-22 11:06 | DVHHP2 ---
History of Present Illness Reason for Visit: SOB History of Present Illness Valentina Mckeon is an 84-year-old female with past medical history of COPD, CKD, hypertension, hyperlipidemia, CVA, TIA, appendectomy, tonsillectomy, ectopic and asthma who presents to the ED with shortness of breath and fever Cardiovascular: HTN, hyperipidemia Pulmonary: Asthma, COPD AMUSEMENT RIDE OPERATOR: CVA Renal/: Chronic renal insuff Past Medical History TIA Past Surgical History: Appendectomy, Other (Ectopic ), Tonsillectomy Smoke: No ALCOHOL: none Drugs: None Lives: Alone Domestic Violence: Neg Review of Systems Respiratory: Shortness of breath Allergies: Coded Allergies: NO KNOWN ALLERGIES (Unverified , 05/24/13) Exam Vital Signs Vital Signs Date Time Temp Pulse Resp B/P (MAP) Pulse Ox O2 Delivery O2 Flow Rate FiO2 03/22/25 09:27 97.7 92 18 185/84 (117) 95 97.7 General Appearance: Alert, Oriented X3, Cooperative, No acute distress HEENT: Atraumatic, PERRLA, EOMI, Mucous membr. moist/pink Respiratory: Clear to auscultation, Normal air movement Cardiovascular: Regular rate, Normal S1, Normal S2, No murmurs Abdominal: Normal bowel sounds, Soft Extremities: Normal pulses Neuro: Normal gait, Normal speech, Strength at 5/5 X4 ext, Normal tone, Sensation intact Psych/Mental Status: Mental status NL, Mood NL Labs/Xrays Labs Test 03/22/25 09:40 03/22/25 07:53 03/22/25 07:48 03/22/25 06:37 Range/Units Troponin I High Sensitivity 11 </=34 ng/L SARS-CoV-2 Antigen (Rapid) Negative NEGATIVE Urine Color Colorless Yellow Urine Clarity Clear Clear Urine pH 6.5 5.0-9.0 Urine Specific [place] 1.007 1.001-1.035 Urine Protein Trace H Negative Urine Ketones Negative Negative Urine Blood 2+ H Negative /uL Urine Nitrite Negative Negative Urine Bilirubin Negative Negative Urine Urobilinogen Normal Negative mg/dL Urine Leukocyte Esterase 2+ Negative /uL Urine RBC 11 0 - 4 /hpf Urine Microscopic WBC 3 0-5 /HPF Urine Squamous Epithelial Cells Few <5 /hpf Urine Bacteria Few H None Seen /hpf Urine Glucose Normal Normal mg/dL White Blood Count 8.1 4.4-10.8 10^3/uL Red Blood Count 4.64 4.0-5.20 10^6/uL Hemoglobin 13.7 12.2-16.2 g/dL Hematocrit 44.1 36.0-46.0 % Mean Corpuscular Volume 95.0 # 80.0-100.0 fL Mean Corpuscular Hemoglobin 29.5 28.0-32.0 pg Mean Corpuscular Hemoglobin Concent 31.0 L 32.0-36.0 g/dL Red Cell Distribution Width 15.6 H 11.8-14.3 % Platelet Count 257 140-450 10^3/uL Mean Platelet Volume 9.8 6.9-10.8 fL Neutrophils (%) (Auto) 82.3 H 37.0-80.0 % Lymphocytes (%) (Auto) 10.0 10.0-50.0 % Monocytes (%) (Auto) 5.2 0.0-12.0 % Eosinophils (%) (Auto) 1.2 0.0-7.0 % Basophils (%) (Auto) 1.3 0.0-2.0 % Neutrophils # (Auto) 6.6 1.6-8.6 10 ^3/uL Lymphocytes # (Auto) 0.8 0.4-5.4 10 ^3/uL Monocytes # (Auto) 0.4 0-1.3 10 ^3/uL Eosinophils # (Auto) 0.1 0-0.8 10 ^3/uL Basophils # (Auto) 0.1 0-0.2 10 ^3/uL Nucleated Red Blood Cells 0.1 % D-Dimer, Quantitative 1.35 H 0.0-0.49 mg/L FEU Sodium Level 142 136-145 mmol/L Potassium Level 3.7 3.5-5.1 mmol/L Chloride Level 105 98-107 mmol/L Carbon Dioxide Level 24 20-31 mmol/L Anion Gap 13 5-15 Blood Urea Nitrogen 9 9-23 mg/dL Creatinine 1.15 H 0.550-1.02 mg/dL Glomerular Filtration Rate Calc 48 >90 mL/min BUN/Creatinine Ratio 7.8 L 10.0-20.0 Serum Glucose 106 74-106 mg/dL Calcium Level 10.8 H 8.7-10.4 mg/dL B-Type Natriuretic Peptide 67.09 0-100 pg/mL CTA Chest with intravenous contrast INDICATION: sob COMPARISON: None TECHNIQUE: Multidetector spiral CTA of the chest was performed of the chest with intravenous contrast. PULMONARY ANGIOGRAPHY PROTOCOL was utilized using a bolus- tracking technique centered on the main pulmonary artery. Axial, coronal and sagittal multiplanar and MIP reformats were performed. Radiation Dose : 1. Chest: CTDI volume is 22.23 mGy. Dose-length product is 750.77 mGy*cm The dose indicators for CT are the volume Computed Tomography (CT) Dose Index (CTDIvol) and the Dose Length Product (DLP), and are measured in units of mGy and mGy-cm, respectively. These indicators are not patient dose, but values generated from the CT scanner acquisition factors. The report includes radiation exposure data for exposures received during this examination. Findings: Pulmonary artery: No large central or large segmental pulmonary embolism. Lower neck: Normal thyroid. Lungs: Dependent subsegmental atelectasis. Heart/Vascular Structures: Cardiomegaly. Vascular calcifications of the aorta. Lymph Nodes: No adenopathy Pleura: No pleural effusion or significant pneumothorax. Musculoskeletal: No acute osseous abnormality. Soft tissues: Normal. Upper abdomen: Large hiatal hernia. IMPRESSION: Examination is limited secondary to respiratory motion artifact. No large central or large segmental pulmonary embolism. Large hiatal hernia. Dependent subsegmental atelectasis. XY CHEST TWO VIEWS ROUTINE CLINICAL HISTORY: SOB COMPARISON: None TECHNIQUE: Frontal and lateral view of the chest was obtained FINDINGS: Lines and Tubes: None Lungs: No focal consolidation. Pleura: No effusion. No pneumothorax. Cardiomediastinal contours: Unremarkable Bones: No acute osseous abnormality. IMPRESSION: No acute cardiopulmonary disease. SEPSIS Sepsis Screen Date sepsis recognized/suspect: Mar 22, 2025 Time Sepsis recognized/suspect: 617 Recent Procedure: No On Antibiotic Therapy: No Respiratory Rate >20: No Heart Rate >90: Yes Temp<36 C (96.8 F) or >38.3 C: No SBP <90 or MAP <65 mmHG: No New Acute Mental Status Change: No Is the patient on CPAP, BIPAP,: No Physician Orders Heplock Iv (03/22/25 06:30) Pulse Oximetry (03/22/25 06:30) Bible Worker (03/22/25 06:30) Blood Pressure (03/22/25 06:30) Chest Two Views Routine (03/22/25 06:30) Electrocardigram (03/22/25 06:30) Electrocardigram (03/22/25 07:30) Electrocardigram (03/22/25 09:30) Ct Angio Chest Contrast (03/22/25 09:33) Vital Signs Date Time Temp Pulse Resp B/P (MAP) Pulse Ox O2 Delivery O2 Flow Rate FiO2 03/22/25 09:27 97.7 92 18 185/84 (117) 95 97.7 03/22/25 06:51 88 03/22/25 06:48 88 03/22/25 06:12 98.0 97 16 187/66 96 98.0 Laboratory Tests Test 03/22/25 06:37 White Blood Count 8.1 10^3/uL (4.4-10.8) Medications Medications Dose Ordered Sig/Es Route Start Time Stop Time Status Last Admin Dose Admin Ceftriaxone Sodium 50 ml @ 100 mls/hr ONCE ONCE IV 03/22/25 09:45 03/22/25 10:14 DC 03/22/25 10:13 100 MLS/HR Assessment/Plan Assessment/Plan Assessment Acute on chronic asthma versus COPD exacerbation large hiatal hernia Atelectasis Reported pyrexia UTI MARIANA likely prerenal History of hypertension History of hyperlipidemia History of CVA History of TIA History of appendectomy History of tonsillectomy History of ectopic History of CKD Plan Admit to med surge Antipyretics Duo nebs Budesonide IV antibiotics-ceftriaxone CTA chest noted Chest x-ray noted EKG Troponin noted negative x3 COVID test UA BNP noted D-dimer noted Diet Home medications reconciled DVT prophylaxis-SCDs PUD prophylaxis-not indicated no history of GERD or GI bleed Discussed plan of care with patient and nurse [id number] Preventive counseling healthy eating habits, physical activity, and regular checkups Plan discussed with: Patient Date of Service: Mar 22, 2025 Billing Provider: RAYMOND HALL Common Visit Codes: [id number] INP/OBS CARE (HIGH) Secondary Visit Codes: [id number] COUNSELING IND RAYMOND HALL Mar 22, 2025 11:06
[2025-03-22] MEDS ORDERED: ALBUTEROL SULF 2.5 MG/0.5ML(0.5%) NEB SOLN NEB PRN (11:15)
[2025-03-22] MEDS ORDERED: ACETAMINOPHEN 325 MG TAB PO PRN (11:15)
[2025-03-22] MEDS ORDERED: ONDANSETRON HCL 4 MG/2 ML VIAL IV PRN (11:15)
[2025-03-22] MEDS ORDERED: IPRATROPIUM BROM 0.5 MG/2.5ML INH SOL NEB PRN (11:15)
[2025-03-22 11:24] VITALS: PULSE 88; RESP 18; O2SAT 97
[2025-03-22] MEDS: hydrALAZINE HCL 20 MG/ML VL IV PRN (12:40)
[2025-03-22] MEDS ORDERED: NIFE1TAB36 PO (12:53)
[2025-03-22] MEDS ORDERED: LOPE2CAP16 PO (12:57)
[2025-03-22] MEDS ORDERED: SIMV40TA18 PO (12:57)
[2025-03-22] MEDS ORDERED: LOSA-535 PO (12:57)
[2025-03-22] MEDS ORDERED: ASPI-543 PO (12:57)
[2025-03-22 13:00] VITALS: BP 179/79; PULSE 102; RESP 20; TEMP 97.7; O2SAT 96
[2025-03-22 15:00] VITALS: PULSE 90; RESP 19; O2SAT 96
[2025-03-22] MEDS ORDERED: PATIENTS OWN MEDICATION (Hydrochlorothiazide 12.5 MG) PO SCH (16:52)
[2025-03-22 17:30] VITALS: BP 151/83; PULSE 90; RESP 19; TEMP 98.7; O2SAT 96
[2025-03-22] MEDS: hydroCHLOROthiazide 25 MG TAB PO SCH (18:49)
[2025-03-22 19:05] VITALS: O2SAT 96
[2025-03-22] MEDS: LISINOPRIL 20 MG TAB PO SCH (20:52)
[2025-03-22 20:57] VITALS: BP 141/87; PULSE 88; RESP 17; TEMP 97.9; O2SAT 96
[2025-03-22] MEDS ORDERED: ATORVASTATIN 20 MG TAB PO SCH (22:00)
[2025-03-23] VITALS (15 sets, daily range): BP systolic 117–181; BP diastolic 58–90; PULSE 83–98; RESP 16–19; TEMP 97.9–98.6; O2SAT 94–100
[2025-03-23 05:59] LABS: Hematocrit 39.3 % (36.0-46.0); Hemoglobin 12.8 g/dL (12.2-16.2); Mean Corpuscular Hemoglobin 29.3 pg (28.0-32.0); Mean Corpuscular Volume 89.7 fL (80.0-100.0); Nucleated Red Blood Cells % 0.1 %
[2025-03-23 06:19] LABS: Albumin 3.8 g/dL (3.2-4.8); Alkaline Phosphatase 67 U/L (46-116); Anion Gap 11 (5-15); BUN/Creatinine Ratio 13.7 (10.0-20.0); Blood Urea Nitrogen 13 mg/dL (9-23); Calcium 9.4 mg/dL (8.7-10.4); Carbon Dioxide 29 mmol/L (20-31); Chloride 103 mmol/L (98-107); Glucose 101 mg/dL (74-106); Sodium 143 mmol/L (136-145); Total Protein 6.2 g/dL (5.7-8.2)
[2025-03-23 06:20] LABS: Bilirubin, Total 0.3 mg/dL (0.2-1.0)
[2025-03-23 06:35] LABS: Alanine Aminotransferase 42 U/L (7-40); Potassium 3.3 mmol/L (3.5-5.1)
[2025-03-23] MEDS: BUDESONIDE (INHALATION) 0.5 MG/2 ML NEB NEB SCH (06:51)
[2025-03-23] MEDS: PANTOPRAZOLE 40 MG TAB PO SCH (10:11)
--- NOTE | 2025-03-23 14:29 | DVHPN2 ---
Reviewed: Care Plan, H&P, Labs, Medications, Previous Orders, Radiology Changes from previous H/P or p: No Changes Respiratory: Shortness of breath Objective Vitals Vital Signs Date Time Temp Pulse Resp B/P (MAP) Pulse Ox O2 Delivery O2 Flow Rate FiO2 03/23/25 13:00 98.0 91 19 181/90 (120) 94 98.0 03/23/25 10:00 Room Air* 0 21 Intake/Output Intake and Output 03/23/25 07:00 Intake Total 650 ml Balance 650 ml Intake Oral 600 ml IV Total 50 ml # Voids 3 Medications Current Medications Medications Dose Ordered Sig/Es Route Start Time Stop Time Status Last Admin Dose Admin Ceftriaxone Sodium 50 ml @ 100 mls/hr DAILY@09 IV 03/23/25 09:00 03/23/25 10:11 100 MLS/HR Albuterol 2.5 mg Q4HPRN PRN NEB 03/22/25 11:15 Ipratropium [place] 0.5 mg Q4HPRN PRN NEB 03/22/25 11:15 Ondansetron HCl 4 mg Q4HP PRN IV 03/22/25 11:15 Acetaminophen 650 mg Q6HP PRN PO 03/22/25 11:15 Lisinopril 20 mg BID PO 03/22/25 22:00 03/23/25 10:13 20 MG Pantoprazole Sodium 40 mg DAILY PO 03/23/25 10:00 03/23/25 10:11 40 MG Nifedipine 60 mg DAILY PO 03/23/25 10:00 03/23/25 10:13 60 MG Atorvastatin Calcium 10 mg HS PO 03/22/25 22:00 Hold Budesonide 0.5 mg BID NEB 03/22/25 22:00 03/23/25 06:51 0.5 MG Hydralazine HCl 10 mg Q6HP PRN IV 03/22/25 12:15 03/23/25 12:35 10 MG Hydrochlorothiazide 12.5 mg DAILY PO 03/22/25 16:55 03/23/25 10:12 12.5 MG Laboratory Results Laboratory Tests 03/23/25 05:31 Chemistry Test 03/23/25 05:31 Albumin 3.8 g/dL (3.2-4.8) Calcium Level 9.4 mg/dL (8.7-10.4) Total Protein 6.2 g/dL (5.7-8.2) LFT Test 03/23/25 05:31 Alanine Aminotransferase (ALT) 42 U/L (7-40) H Alkaline Phosphatase 67 U/L (46-116) Aspartate Amino Transferase (AST) 76 U/L (13-40) H Total Bilirubin 0.3 mg/dL (0.2-1.0) Urinalysis Test 03/22/25 07:48 Urine Color Colorless (Yellow) Urine Clarity Clear (Clear) Urine pH 6.5 (5.0-9.0) Urine Specific [place] 1.007 (1.001-1.035) Urine Protein Trace (Negative) H Urine Ketones Negative (Negative) Urine Blood 2+ /uL (Negative) H Urine Nitrite Negative (Negative) Urine Bilirubin Negative (Negative) Urine Urobilinogen Normal mg/dL (Negative) Urine Leukocyte Esterase 2+ /uL (Negative) Urine RBC 11 /hpf (0 - 4) Urine Microscopic WBC 3 /HPF (0-5) Urine Squamous Epithelial Cells Few /hpf (<5) Urine Bacteria Few /hpf (None Seen) H Urine Glucose Normal mg/dL (Normal) Labs and/or images reviewed: Labs reviewed by me, Image(s) reviewed by me Assessment/Plan Assessment/Plan Acute on chronic asthma versus COPD exacerbation Community-acquired pneumonia: Rocephin albuterol Atrovent med neb UTI MARIANA Hypertension Hypercholesterolemia CVA TIA CKD Test negative Time spent 68 minutes Advanced care time 20 minutes Patient is full code PCP Dr Hoa Rodney RN at bed side Plan discussed with: Patient Date of Service: Mar 23, 2025 Billing Provider: JAVED MERINO MD Common Visit Codes: [id number] CARE 30-74 MIN JAVED MERINO MD Mar 23, 2025 14:29
--- NOTE | 2025-03-23 19:37 | ECG ---
[facility] Test Date: 2025-03-22 Test Time: 06:48:38 Pat Name: JFEFERSON MCKNIGHT Department: ED Room: 0250 A Gender: F Cable Tester: ZOFIA : [id number] Requested By: STACEY BRANNON Order Number: [id number] Reading MD: Fam Villafuerte Measurements Intervals [place] Rate: 88 P: 48 TN: 152 QRS: 40 QRSD: 84 T: 53 QT: 362 QTc: 438 Interpretive Statements Sinus rhythm Borderline repolarization abnormality Electronically Signed On 03-26-2025 17:41:03 PST by Fam Villafuerte Please click the below link to view image of tracing.
[2025-03-24] VITALS (12 sets, daily range): BP systolic 136–160; BP diastolic 68–82; PULSE 80–100; RESP 14–18; TEMP 97.6–98.7; O2SAT 91–100
--- NOTE | 2025-03-24 09:54 | DVHPN2 ---
Reviewed: Care Plan, H&P, Labs, Medications, Previous Orders, Radiology Changes from previous H/P or p: No Changes Respiratory: Shortness of breath Objective Vitals Vital Signs Date Time Temp Pulse Resp B/P (MAP) Pulse Ox O2 Delivery O2 Flow Rate FiO2 03/24/25 09:09 153/73 03/24/25 08:43 98.0 82 17 94 98.0 03/23/25 20:00 Room Air* 0 21 Intake/Output Intake and Output 03/24/25 07:00 Intake Total 1740 ml Balance 1740 ml Intake Oral 1690 ml IV Total 50 ml # Voids 6 # Bowel Movements 2 Medications Current Medications Medications Dose Ordered Sig/Es Route Start Time Stop Time Status Last Admin Dose Admin Ceftriaxone Sodium 50 ml @ 100 mls/hr DAILY@09 IV 03/23/25 09:00 03/24/25 09:07 100 MLS/HR Albuterol 2.5 mg Q4HPRN PRN NEB 03/22/25 11:15 Ipratropium [place] 0.5 mg Q4HPRN PRN NEB 03/22/25 11:15 Ondansetron HCl 4 mg Q4HP PRN IV 03/22/25 11:15 Acetaminophen 650 mg Q6HP PRN PO 03/22/25 11:15 Lisinopril 20 mg BID PO 03/22/25 22:00 03/24/25 09:08 20 MG Pantoprazole Sodium 40 mg DAILY PO 03/23/25 10:00 03/24/25 09:09 40 MG Nifedipine 60 mg DAILY PO 03/23/25 10:00 03/24/25 09:08 60 MG Atorvastatin Calcium 10 mg HS PO 03/22/25 22:00 Hold Budesonide 0.5 mg BID NEB 03/22/25 22:00 03/23/25 18:44 0.5 MG Hydralazine HCl 10 mg Q6HP PRN IV 03/22/25 12:15 03/23/25 19:06 10 MG Hydrochlorothiazide 12.5 mg DAILY PO 03/22/25 16:55 03/24/25 09:09 12.5 MG Laboratory Results Laboratory Tests 03/23/25 05:31 Urinalysis Test 03/22/25 07:48 Urine Color Colorless (Yellow) Urine Clarity Clear (Clear) Urine pH 6.5 (5.0-9.0) Urine Specific [place] 1.007 (1.001-1.035) Urine Protein Trace (Negative) H Urine Ketones Negative (Negative) Urine Blood 2+ /uL (Negative) H Urine Nitrite Negative (Negative) Urine Bilirubin Negative (Negative) Urine Urobilinogen Normal mg/dL (Negative) Urine Leukocyte Esterase 2+ /uL (Negative) Urine RBC 11 /hpf (0 - 4) Urine Microscopic WBC 3 /HPF (0-5) Urine Squamous Epithelial Cells Few /hpf (<5) Urine Bacteria Few /hpf (None Seen) H Urine Glucose Normal mg/dL (Normal) Labs and/or images reviewed: Labs reviewed by me, Image(s) reviewed by me Assessment/Plan Assessment/Plan Acute hypoxic respiratory failure: Oxygen by nasal cannula Acute asthma exacerbation versus COPD exacerbation UTI Community-acquired pneumonia Gram-positive versus gm neg Rocephin albuterol Atrovent med neb UTI MARIANA Hypertension Hypercholesterolemia CVA TIA CKD Josephine test neg Time spent 50 minutes Advanced care time 20 minutes Patient is full code PCP Dr Hoa Rodney RN Yas at bed side Plan discussed with: Patient Date of Service: Mar 24, 2025 Billing Provider: JAVED MERINO MD Common Visit Codes: [id number] INP/OBS CARE(HIGH) JAVED MERINO MD Mar 24, 2025 09:54
[2025-03-24] MEDS: POTASSIUM CHL 20 Meq TABLET PO ONE (10:34)
[2025-03-24] MEDS: LOPERAMIDE HCL 2 MG CAP/TAB PO PRN (10:34)
[2025-03-24] MEDS: POTASSIUM EFFERVESENT TAB 25 MEQ PO ONE (11:02)
[2025-03-25] VITALS (10 sets, daily range): BP systolic 136–157; BP diastolic 65–73; PULSE 75–88; RESP 16–17; TEMP 97.5–98.2; O2SAT 89–100
[2025-03-25 07:09] LABS: Hematocrit 40.5 % (36.0-46.0); Hemoglobin 13.4 g/dL (12.2-16.2); Mean Corpuscular Hemoglobin 30.0 pg (28.0-32.0); Mean Corpuscular Volume 90.4 fL (80.0-100.0); Nucleated Red Blood Cells % 0.0 %
[2025-03-25 07:14] LABS: Alanine Aminotransferase 52 U/L (7-40); Albumin 4.1 g/dL (3.2-4.8); Alkaline Phosphatase 71 U/L (46-116); Anion Gap 9 (5-15); BUN/Creatinine Ratio 17.8 (10.0-20.0); Bilirubin, Total 0.3 mg/dL (0.2-1.0); Blood Urea Nitrogen 16 mg/dL (9-23); Calcium 9.5 mg/dL (8.7-10.4); Carbon Dioxide 31 mmol/L (20-31); Chloride 101 mmol/L (98-107); Glucose 102 mg/dL (74-106); Potassium 4.0 mmol/L (3.5-5.1); Sodium 141 mmol/L (136-145); Total Protein 6.8 g/dL (5.7-8.2)
--- NOTE | 2025-03-25 12:07 | DVHPN2 ---
Reviewed: Care Plan, H&P, Labs, Medications, Previous Orders, Radiology Changes from previous H/P or p: No Changes Respiratory: Shortness of breath Objective Vitals Vital Signs Date Time Temp Pulse Resp B/P (MAP) Pulse Ox O2 Delivery O2 Flow Rate FiO2 03/25/25 10:00 94 Room Air 0.0 03/25/25 10:00 21 03/25/25 09:28 78 16 03/25/25 08:52 145/65 03/25/25 08:50 98.2 98.2 Intake/Output Intake and Output 03/25/25 07:00 Intake Total 850 ml Balance 850 ml Intake Oral 800 ml IV Total 50 ml # Voids 4 # Bowel Movements 3 Medications Current Medications Medications Dose Ordered Sig/Es Route Start Time Stop Time Status Last Admin Dose Admin Ceftriaxone Sodium 50 ml @ 100 mls/hr DAILY@09 IV 03/23/25 09:00 03/25/25 08:54 100 MLS/HR Albuterol 2.5 mg Q4HPRN PRN NEB 03/22/25 11:15 Ipratropium [place] 0.5 mg Q4HPRN PRN NEB 03/22/25 11:15 Ondansetron HCl 4 mg Q4HP PRN IV 03/22/25 11:15 Acetaminophen 650 mg Q6HP PRN PO 03/22/25 11:15 Lisinopril 20 mg BID PO 03/22/25 22:00 03/25/25 08:51 20 MG Pantoprazole Sodium 40 mg DAILY PO 03/23/25 10:00 03/25/25 08:52 40 MG Nifedipine 60 mg DAILY PO 03/23/25 10:00 03/25/25 08:52 60 MG Atorvastatin Calcium 10 mg HS PO 03/22/25 22:00 Hold Budesonide 0.5 mg BID NEB 03/22/25 22:00 03/25/25 09:21 0.5 MG Hydralazine HCl 10 mg Q6HP PRN IV 03/22/25 12:15 03/24/25 11:36 10 MG Hydrochlorothiazide 12.5 mg DAILY PO 03/22/25 16:55 03/25/25 08:52 12.5 MG Loperamide HCl 2 mg Q4HPRN PRN PO 03/24/25 10:00 03/24/25 15:38 2 MG Laboratory Results Laboratory Tests 03/25/25 05:40 Chemistry Test 03/25/25 05:40 Albumin 4.1 g/dL (3.2-4.8) Calcium Level 9.5 mg/dL (8.7-10.4) Total Protein 6.8 g/dL (5.7-8.2) LFT Test 03/25/25 05:40 Alanine Aminotransferase (ALT) 52 U/L (7-40) H Alkaline Phosphatase 71 U/L (46-116) Aspartate Amino Transferase (AST) 55 U/L (13-40) H Total Bilirubin 0.3 mg/dL (0.2-1.0) Urinalysis Test 03/22/25 07:48 Urine Color Colorless (Yellow) Urine Clarity Clear (Clear) Urine pH 6.5 (5.0-9.0) Urine Specific [place] 1.007 (1.001-1.035) Urine Protein Trace (Negative) H Urine Ketones Negative (Negative) Urine Blood 2+ /uL (Negative) H Urine Nitrite Negative (Negative) Urine Bilirubin Negative (Negative) Urine Urobilinogen Normal mg/dL (Negative) Urine Leukocyte Esterase 2+ /uL (Negative) Urine RBC 11 /hpf (0 - 4) Urine Microscopic WBC 3 /HPF (0-5) Urine Squamous Epithelial Cells Few /hpf (<5) Urine Bacteria Few /hpf (None Seen) H Urine Glucose Normal mg/dL (Normal) Microbiology Microbiology Date/Time Source Procedure Growth Status 03/23/25 06:37 Nose MRSA Screen - Final Complete Labs and/or images reviewed: Labs reviewed by me, Image(s) reviewed by me Assessment/Plan Assessment/Plan Acute hypoxic respiratory failure: Oxygen by nasal cannula Acute asthma exacerbation versus COPD exacerbation Community-acquired pneumonia Gram-positive versus gm neg Rocephin albuterol Atrovent med neb UTI MARIANA Hypertension Hypercholesterolemia CVA TIA CKD Josephine test neg Patient feels better and wants to go home MARTINA Shaffer at bedside Plan discussed with: Patient Date of Service: Mar 25, 2025 Billing Provider: JAVED MERINO MD Common Visit Codes: [id number] INP/OBS CARE(HIGH) JAVED MERINO MD Mar 25, 2025 12:07
[2025-03-25] MEDS ORDERED: AZIT500T66 PO (12:08)
--- NOTE | 2025-03-25 12:11 | DVHDS2 ---
Discharge Summary Date of Admission Mar 22, 2025 at 11:03 Date of Discharge: Mar 25, 2025 Admitting Diagnosis Shortness of breath Wounds: None Labs/Diagnostic Data: Laboratory Results Test 03/25/25 05:40 03/22/25 09:40 03/22/25 07:53 03/22/25 07:48 White Blood Count 7.6 10^3/uL (4.4-10.8) Red Blood Count 4.48 10^6/uL (4.0-5.20) Hemoglobin 13.4 g/dL (12.2-16.2) Hematocrit 40.5 % (36.0-46.0) Mean Corpuscular Volume 90.4 fL (80.0-100.0) Mean Corpuscular Hemoglobin 30.0 pg (28.0-32.0) Mean Corpuscular Hemoglobin Concent 33.2 g/dL (32.0-36.0) Red Cell Distribution Width 14.8 % (11.8-14.3) Platelet Count 212 10^3/uL (140-450) Mean Platelet Volume 10.4 fL (6.9-10.8) Neutrophils (%) (Auto) 76.3 % (37.0-80.0) Lymphocytes (%) (Auto) 11.8 % (10.0-50.0) Monocytes (%) (Auto) 7.3 % (0.0-12.0) Eosinophils (%) (Auto) 3.5 % (0.0-7.0) Basophils (%) (Auto) 1.1 % (0.0-2.0) Neutrophils # (Auto) 5.8 10 ^3/uL (1.6-8.6) Lymphocytes # (Auto) 0.9 10 ^3/uL (0.4-5.4) Monocytes # (Auto) 0.6 10 ^3/uL (0-1.3) Eosinophils # (Auto) 0.3 10 ^3/uL (0-0.8) Basophils # (Auto) 0.1 10 ^3/uL (0-0.2) Nucleated Red Blood Cells 0.0 % Sodium Level 141 mmol/L (136-145) Potassium Level 4.0 mmol/L (3.5-5.1) Chloride Level 101 mmol/L (98-107) Carbon Dioxide Level 31 mmol/L (20-31) Anion Gap 9 (5-15) Blood Urea Nitrogen 16 mg/dL (9-23) Creatinine 0.90 mg/dL (0.550-1.02) Glomerular Filtration Rate Calc 64 mL/min (>90) BUN/Creatinine Ratio 17.8 (10.0-20.0) Serum Glucose 102 mg/dL (74-106) Calcium Level 9.5 mg/dL (8.7-10.4) Total Bilirubin 0.3 mg/dL (0.2-1.0) Aspartate Amino Transferase (AST) 55 U/L (13-40) Alanine Aminotransferase (ALT) 52 U/L (7-40) Alkaline Phosphatase 71 U/L (46-116) Total Protein 6.8 g/dL (5.7-8.2) Albumin 4.1 g/dL (3.2-4.8) Troponin I High Sensitivity 11 ng/L (</=34) SARS-CoV-2 Antigen (Rapid) Negative (NEGATIVE) Urine Color Colorless (Yellow) Urine Clarity Clear (Clear) Urine pH 6.5 (5.0-9.0) Urine Specific [place] 1.007 (1.001-1.035) Urine Protein Trace (Negative) Urine Ketones Negative (Negative) Urine Blood 2+ /uL (Negative) Urine Nitrite Negative (Negative) Urine Bilirubin Negative (Negative) Urine Urobilinogen Normal mg/dL (Negative) Urine Leukocyte Esterase 2+ /uL (Negative) Urine RBC 11 /hpf (0 - 4) Urine Microscopic WBC 3 /HPF (0-5) Urine Squamous Epithelial Cells Few /hpf (<5) Urine Bacteria Few /hpf (None Seen) Urine Glucose Normal mg/dL (Normal) Test 03/22/25 06:37 D-Dimer, Quantitative 1.35 mg/L FEU (0.0-0.49) B-Type Natriuretic Peptide 67.09 pg/mL (0-100) Other Laboratory Tests 03/25/25 05:40 Brief Hx & Hospital Course: 84-year-old female with a history of asthma COPD hypertension hypercholesterolemia CVA CKD came in for shortness of breaths. Found to have community-acquired pneumonia treated with Rocephin albuterol Atrovent med neb afebrile at the time of discharge patient is on room air. Discharged home on azithromycin for pneumonia she will follow up with the primary Dr Josephine manley negative Consults/Reason for consult None Operations or Procedures None Condition at Discharge: Fair Final Diagnosis/Problems List Acute hypoxic respiratory failure: Oxygen by nasal cannula Acute asthma exacerbation versus COPD exacerbation Community-acquired pneumonia Gram-positive versus gm neg Rocephin albuterol Atrovent med neb UTI MARIANA Hypertension Hypercholesterolemia CVA TIA CKD Josephine test neg Discharge Disposition: Home Discharge Instruct/Medications Diet: Cardiac 2g Na,low cholest Activity: No Restrictions, As Tolerated Follow Up/Referral: Resume All your previous home medications Follow up with your primary Dr Dr. Hoa gonzalez Medications: Azithromycin 500 mg p.o. daily 10. Sent to pharmacy Scheduled Aspirin (Aspir-Low), 81 MG PO HS, (Reported) Azithromycin (Azithromycin), 1 TAB PO DAILY Ciprofloxacin Hcl (Cipro), 1 TAB PO BID Diclofenac Sodium (Diclofenac Sodium Dr), 0.5 TAB PO DAILY, (Reported) Fluticasone Propionate (FLOVENT HFA 110Mcg INH), 2 PUFF INH BID, (Reported) Hydrochlorothiazide (Hydrochlorothiazide), 10 MG PO PRN, (Reported) Lansoprazole (Lansoprazole), 1 CAP PO DAILY, (Reported) Lisinopril (Lisinopril), 1 TAB PO BID, (Reported) Loperamide HCl (Imodium A-D), 2 MG PO TID Loperamide Hcl (Imodium), 2 MG PO TID, (Reported) Losartan Potassium (Losartan Potassium), 100 MG PO DAILY, (Reported) Nifedipine (Nifedipine Er), 1 TAB PO DAILY, (Reported) Nifedipine (Nifedipine ER), 30 MG PO BID, (Reported) Salmeterol Xinafoate (Serevent Diskus), 50 MCG IN QID, (Reported) Simvastatin (Simvastatin), 1 TAB PO QPM, (Reported) Simvastatin (Simvastatin), 1 TAB PO QPM, (Reported) Miscellaneous Medications Albuterol Sulfate (Ventolin Mdi), 90 MCG IN, (Reported) Promethazine HCl (Phenergan), Unknown Dose [place], (Reported) 36 (Time taken for discharge summary 36 minutes) Discharge Statement: "Patient was advised to return to the ER or call 911 if any headaches, dizziness, shortness of breath, chest pain, abdominal pain, bleeding, fevers, or worsening of medical condition. Patient was counseled about treatment plan, medications, possible side effects, patientverbalized understanding. All questions were answered to the best of my ability. This discharge took greater then 30 minutes in planning, reviewing documentation, counseling the patient, and discussing with other team members." ASSESSMENT ASSESSMENT Hospital Course Improved Assessment Acute hypoxic respiratory failure: Oxygen by nasal cannula Acute asthma exacerbation versus COPD exacerbation Community-acquired pneumonia Gram-positive versus gm neg Rocephin albuterol Atrovent med neb UTI MARIANA Hypertension Hypercholesterolemia CVA TIA CKD Josephine test neg Date of Service: Mar 25, 2025 Billing Provider: JAVED MERINO MD Common Visit Codes: [id number] DISCH DAY >30min JAVED MERINO MD Mar 25, 2025 12:11
== END 2025-03-25 14:10 | disposition home or self-care (01) | DRG 177 ==
LOC: ER 06:04 → OVERFLOW 11:03 → EAST 17:24
PROVIDERS: ATTEND Family Medicine
DX: J15.69 Pneumonia due to other Gram-negative bacteria (principal); J96.01 Acute respiratory failure with hypoxia; N17.9 Acute kidney failure, unspecified; J45.901 Unspecified asthma with (acute) exacerbation; G45.9 Transient cerebral ischemic attack, unspecified; K44.9 Diaphragmatic hernia without obstruction or gangrene; J44.0 Chronic obstructive pulmonary disease with (acute) lower respiratory infection; N39.0 Urinary tract infection, site not specified; J15.9 Unspecified bacterial pneumonia; N18.9 Chronic kidney disease, unspecified; I12.9 Hypertensive chronic kidney disease with stage 1 through stage 4 chronic kidney disease, or unspecified chronic kidney disease; J98.11 Atelectasis; Z20.822 Contact with and (suspected) exposure to COVID-19; E78.00 Pure hypercholesterolemia, unspecified; F17.200 Nicotine dependence, unspecified, uncomplicated; Z86.73 Personal history of transient ischemic attack (TIA), and cerebral infarction without residual deficits; Z90.49 Acquired absence of other specified parts of digestive tract
CPT/HCPCS: 36415; 71046; 71275; 74176; 80048; 80053; 81001; 83690; 83880; 84484; 85025; 85379; 87081; 87426; 93005; 94640; 96361; 96365; 96375; G0378